=== PATIENT | male | born 1975 | race Caucasian/White ===

== ENCOUNTER 2020-08-23 08:19 | Outpatient (CLI) | payer OTHER, SELFPAY ==
--- NOTE | 2020-09-21 13:29 | WPDHOMESLEEP ---
Sleep Study - Home Unattended Date of Study: 08/23/20 Ordering Provider: Chance Arevalo MD Interpreting Physician: Seble Ken MD Home Sleep Study Type: Apnea Link Air Height: 1.85 m Weight: 108.862 kg Body Mass Index: 31.6 [place]: 9 Reason for Sleep Study Hyersomnia Sleep History Devin Benítez is a 45 year-old man with a history of waking frequently throughout the night and feeling exhausted during the daytime. He has been told by others that he stops breathing and snores very loudly at night. He wakes up throughout the night, including civil rights representative hours and has a difficult time waking in the morning. His snoring is constantly loud enough that others complain about it. He does not have heartburn, belching or coughing at night. He does not wake up feeling short of breath. He occasionally notices his heart pounding or beating irregularly at night, occasionally falls asleep during the day, occasionally involuntarily but never while driving. He rarely falls asleep during physical effort. He does not have loss of muscle tone with strong motion. He rarely has daytime difficulties due to excessive sleepiness, He works as an director clinical operations. He does not feel paralyzed on waking or falling asleep. He occasionally has vivid dreamlike scenes upon awakening or falling asleep. He has never feels afraid to go to sleep. He occasionally has nightmares. He frequently remembers his dreams. He constantly has racing thoughts. He freely feel sad depressed and anxious. He rarely has muscular tension. He occasionally notices parts of his body jerking. He rarely kicks at night. He occasionally has crawling and aching feelings in his legs and leg pain during the night. He rarely has morning jaw pain. He occasionally notices his teeth grinding during sleep. He occasionally has bothered by pain during the day, rarely is awakened by pain at night, rarely wakes up feeling stiff in the morning with sore or achy muscles. He occasionally wakes up with pain in the neck and spine. He has fatigue and depression. Normal bedtime is between 9 and 10:00 p.m. falling asleep within 30-45 minutes, typically waking 3-4 times at night staying awake for a few minutes. During that time he will go to the bathroom than toss and turn to get back to sleep. He wakes the morning at 4:00 a.m.. On the weekends he may go to bed later, between 10:00 p.m. and midnight and wake at 9:00 a.m. so he does get some recovery sleep. His sleep is often disturbed by his pets. It is harder for him to get up on the weekends after sleeping longer. He does take naps. Short naps are not refreshing. He is usually drowsy in the morning for 3 hours or longer. Habits: No mention concerning tobacco. He does drink caffeine 4-5 beverages a day. He drinks alcohol but not daily. He has lost 30 lb in the last year. [facility] Past Medical History Medical History (Updated 09/21/20 @ 13:45 by Seble Ken MD) Depression Diabetes mellitus Social History Social History (Updated 09/21/20 @ 13:42 by Seble Ken MD) Alcohol intake: current Occupation/Education: occupation Sleep Procedure This test was performed using 4 channel monitoring including respiratory effort channel, snoring channel, heart rate channel, and oxygen saturation channel. This study was scored using [facility] guidelines. Sleep Architecture Not applicable for home sleep test. Respiratory Analysis The duration of the evaluation time was 6 hours 20 minutes. The apnea-hypopnea index is 88.5. He had 397 apneas, and the majority, 94%, 373 were obstructive, 3% or 10 apneas were central, 4% or 14 apneas were mixed and he had 164 hypopneas. There was no evidence of suspected Alejandro-Yung respirations. Oximetry Data The oxygen desaturation index is 85. The lowest desaturation is 71%. The average saturation is 89% which is below normal. He had 563 desaturations and spent 42% of the study, 166 minutes, bel
[2020-09-21 13:49] VITALS: BMI 31.6
== END 2020-08-23 08:20 | disposition home or self-care (01) ==
LOC: ANHCSM 08:28
PROVIDERS: Visit Provider Family Medicine
DX: G47.9 Sleep disorder, unspecified (principal)
CPT/HCPCS: 95806

== ENCOUNTER 2020-10-26 02:22 | Outpatient (CLI) | payer OTHER, SELFPAY ==
[2020-10-26 20:00] LABS: SARS-CoV-2 RNA PCR Negative
== END 2020-10-26 02:23 | disposition home or self-care (01) ==
LOC: ANHCOVIDDT 02:22
PROVIDERS: Visit Provider Internal Medicine Critical Care Medicine
DX: R68.89 Other general symptoms and signs (principal); Z20.828 Contact with and (suspected) exposure to other viral communicable diseases
CPT/HCPCS: 87635; C9803; U0003

== ENCOUNTER 2020-10-29 06:22 | Outpatient (CLI) | payer OTHER, SELFPAY ==
--- NOTE | 2020-12-05 09:05 | WPDSLEEPSTUD ---
Sleep Study Date of Study: 10/29/20 Ordering Provider: Chance Arevalo MD Interpreting Physician: Seble Ken MD Sleep Study Type: CPAP Titration Height: 1.85 m Weight: 108.862 kg Body Mass Index: 31.6 Neck Circumference: 44.45 cm [place]: 9 Reason for Sleep Study ApneaLink home sleep test on 08/23/2020 with an AHI of 88.5, lowest saturation 71%, now presents for CPAP titration Sleep History Devin Benítez is a 45 year old man with a home sleep test on August 23, 2020 showing severe obstructive sleep apnea syndrome with an AHI of 88.5 and a minimum saturation of 71%. Sleep history includes waking frequently throughout the night and feeling exhausted during the daytime. He has been told by others that he stops breathing and snores very loudly at night. He wakes up throughout the night, including internal grinder hours and has a difficult time waking in the morning. His snoring is constantly loud enough that others complain about it. He does not have heartburn, belching or coughing at night. He does not wake up feeling short of breath. He occasionally notices his heart pounding or beating irregularly at night, occasionally falls asleep during the day, occasionally involuntarily but never while driving. He rarely falls asleep during physical effort. He does not have loss of muscle tone with strong motion. He rarely has daytime difficulties due to excessive sleepiness, He works as an mortgage operations manager. He does not feel paralyzed on waking or falling asleep. He occasionally has vivid dreamlike scenes upon awakening or falling asleep. He has never feels afraid to go to sleep. He occasionally has nightmares. He frequently remembers his dreams. He constantly has racing thoughts. He freely feel sad depressed and anxious. He rarely has muscular tension. He occasionally notices parts of his body jerking. He rarely kicks at night. He occasionally has crawling and aching feelings in his legs and leg pain during the night. He rarely has morning jaw pain. He occasionally notices his teeth grinding during sleep. He occasionally has bothered by pain during the day, rarely is awakened by pain at night, rarely wakes up feeling stiff in the morning with sore or achy muscles. He occasionally wakes up with pain in the neck and spine. He has fatigue and depression. Normal bedtime is between 9 and 10:00 p.m. falling asleep within 30-45 minutes, typically waking 3-4 times at night staying awake for a few minutes. During that time he will go to the bathroom than toss and turn to get back to sleep. He wakes the morning at 4:00 a.m.. On the weekends he may go to bed later, between 10:00 p.m. and midnight and wake at 9:00 a.m. so he does get some recovery sleep. His sleep is often disturbed by his pets. It is harder for him to get up on the weekends after sleeping longer. He does take naps. Short naps are not refreshing. He is usually drowsy in the morning for 3 hours or longer. Habits: No mention concerning tobacco. Caffeine 4-5 beverages a day. He drinks alcohol but not daily. PENDING SALE TO [facility] Past Medical History Medical History (Updated 09/21/20 @ 13:45 by Seble Ken MD) Depression Diabetes mellitus Social History Social History Alcohol intake: current Medications Medications: Metformin 1000 mg b.i.d. Sleep Procedure This test was performed using the [employer] multiple channel system including EOG, EEG, submental EMG, EKG, nasal and oral airflow using thermistors and nasal pressure sensors, chest and abdominal belts for body position data, and pulse oximetry. Video monitoring was also performed. The study was scored using [facility] guidelines. The patient was started on CPAP using medium Andres FX nasal pillows and a heated humidifier, starting at 5 cm of water pressure, increasing to maximum of 11 cm of water. The patient had supine REM at this setting. At 11 cm the patient spent 2
[2020-12-05 09:14] VITALS: BMI 31.6
== END 2020-10-29 07:53 | disposition home or self-care (01) ==
LOC: ANHCSM 11-13 06:22
PROVIDERS: Visit Provider Family Medicine
DX: G47.30 Sleep apnea, unspecified (principal); G47.33 Obstructive sleep apnea (adult) (pediatric)
CPT/HCPCS: 95811

== ENCOUNTER 2022-04-16 11:23 | Emergency (ER) | payer OTHER, SELFPAY ==
--- NOTE | ~2022-04-16 | CT_ITS ---
EXAMINATION: CT abdomen pelvis wo con DATE: 04/16/2022 12:58 INDICATION: Abdominal wall pain. TECHNIQUE: Computed tomography (CT) of the abdomen and pelvis was performed without intravenous contr ast. The dose-length product was 1267.99 mGy-cm. Automated exposure control and iterative reconstruct ion technique were employed. COMPARISON: None. FINDINGS: Lung bases are unremarkable. Heart size is normal. No significant pleural or pericardial ef fusion. Fatty infiltration of the liver. The spleen, pancreas, adrenal glands and kidneys are unremarkable. G allbladder is present. There is a fat-containing umbilical hernia. Colonic diverticulosis without ruby dence for diverticulitis. There are fat-containing bilateral inguinal hernias. The spleen is unremarkable. There are accessory splenules. The pancreas, adrenal glands and right kid trevon are unremarkable. There is a punctate 1-2 mm nonobstructing left renal stone. The appendix is unr emarkable. Moderate lumbar spondylosis. IMPRESSION: 1. Fat-containing umbilical and bilateral inguinal hernias. 2: Nonobstructing left nephrolithiasis. Reviewed, dictated and finalized at location B.
[2022-04-16 11:24] VITALS: BP 157/96; PULSE 77; RESP 18; TEMP 36.5; O2SAT 98
[2022-04-16 11:33] VITALS: BP 148/87; PULSE 75; RESP 15; O2SAT 97
--- NOTE | 2022-04-16 12:54 | ED.ABDPAIN ---
HPI - Abdominal Pain General Chief Complaint: Abdominal Pain Stated Complaint: abd pain Time Seen by Provider: 04/16/22 11:53 Source: patient and RN notes reviewed Mode of arrival: ambulatory Limitations: no limitations History of Present Illness HPI narrative: This is a 46 year old male who presents for evaluation of umbilical hernia pain. Patient states he has had an umbilical hernia for 1-2 years. He has noticed pain and redness at site of his hernia for 2 days. He has mild tenderness and itching at site. He was seen by PCP today and he was referred to ER for possible surgery for his hernia. He states he thought he was just bitten by a bug. He denies nausea, vomiting, fever, chills or diarrhea. He reports having normal bowel movement today. Related Data Allergies Allergy/AdvReac Type Severity Reaction Status Date / Time No Known Allergies Allergy Verified 04/16/22 11:32 Review of Systems Review of Systems: All systems reviewed & are unremarkable except as noted in HPI and below Constitutional: Constitutional: Denies chills, Denies fatigue and Denies fever(s) ENT: Denies sore throat Cardiovascular: Cardiovascular: Denies chest pain and Denies rapid heart rate Respiratory: Respiratory: Denies chest congestion and Denies cough Gastrointestinal: Gastrointestinal: Reports abdominal pain, Denies constipation, Denies heartburn, Denies diarrhea, Denies nausea and Denies vomiting Genitourinary: Genitourinary: Denies hematuria Musculoskeletal: Musculoskeletal: Denies back pain Integumentary/Breasts: Skin/Breast: Reports pruritus and Reports erythema PMFSH Past Medical History Medical History (Updated 04/16/22 @ 14:03 by Beverley Guerrero MD) Depression Diabetes mellitus Surgical History Surgical History (Updated 04/16/22 @ 12:58 by Beverley Guerrero MD) No pertinent past surgical history Social History Social History Alcohol intake: current Exam Const: General: healthy appearing Nutritional Appearance: well nourished Orientation/consciousness: patient oriented x3 Limitations: no limitations HENMT: Head: normal to inspection Ears: external ears normal Eyes: EOM: EOMs intact bilaterally Resp: Effort & Inspection: normal respiratory effort Auscultation: clear to auscultation bilaterally and breath sounds present Cardio: Rate: regular rate Rhythm: regular rhythm Heart sounds: no murmurs GI: GI Palp: Yes Soft to palpation, Yes Tenderness to palpation present (GI) (mild tenderness at umbilical hernia), No Guarding due to palpation present (GI), No Rigid due to palpation and No Hernia present Auscultation: normal bowel sounds Skin: Other: at umbilicus there is small cracked skin with mild blanchable erythema, at periumbilical, no induration or abscess, no drainage Neuro: General: patient oriented x3, moves all extremities and CN's II-XI intact bilaterally Psych: Mental Status: mental status grossly normal Affect: normal affect Course Reevaluation(s) Reevaluation #1: I discussed with patient that he has umbilical hernia and inguinal hernias that are fat containing. I explained that his redness is more likely due to candidal infection due to uncontrolled diabetes. He does not take any medications. I explained that he will need to follow up with PCP regarding his diabetes. I will start metformin. I explained he can follow up with general surgeon regarding his hernias. but today his problem is due to skin infection. Date: 04/16/22 Time: 13:49 Vital Signs Vital signs: Vital Signs Temperature 97.7 F 04/16/22 11:24 Pulse Rate 77 04/16/22 11:24 Respiratory Rate 18 04/16/22 11:24 Blood Pressure 157/96 H 04/16/22 11:24 Pulse Oximetry 98 04/16/22 11:24 Oxygen Delivery Room Air 04/16/22 11:24 Temperature 97.7 F 04/16/22 11:24 Pulse Rate 70 04/16/22 14:14 Respiratory Rate 16 04/16/22 14:14 Blood Pres
[2022-04-16 13:29] LABS: Basophils Absolute Auto 0.1 K/mm3 (0.0-0.1); Basophils Percent Auto 0.9 % (0.2-1.2); Eosinophils Absolute Auto 0.3 K/mm3 (0-0.3); Hematocrit 43.9 % (42.0-52.0); Hemoglobin 15.5 g/dL (14.0-18.0); Immature Granulocyte Absolute 0.03 K/mm3 (0.00-0.031); Immature Granulocyte Percent A 0.3 % (0-0.5); Lymphocytes Absolute Auto 2.48 K/mm3 (0.9-3.2); Lymphocytes Percent Auto 26.8 % (18.3-44.2); Mean Corpuscular HGB Conc 35.3 g/dl (32-36); Mean Corpuscular Hemoglobin 32.6 pg (26-34); Mean Corpuscular Volume 92.4 fl (80-100); Mean Platelet Volume 9.9 fl (7.4-10.4); Monocytes Absolute Auto 0.7 K/mm3 (0.1-0.6); Monocytes Percent Auto 7.2 % (2.6-8.5); Neutrophils Absolute Auto 5.7 K/mm3 (1.3-6.7); Neutrophils Percent Auto 61.8 % (45.5-73.1); Platelet Count Result 257 k/mm3 (150-375); Red Blood Count 4.75 M/mm3 (4.6-6.20); Red Cell Distribution Width 11.5 % (11.5-14.5); White Blood Count 9.3 K/mm3 (4.5-10.0)
[2022-04-16 13:34] LABS: Alanine Aminotransferase 69 U/L (6-50); Albumin Level 4.4 g/dL (3.5-5.1); Alkaline Phosphatase 101 U/L (38-126); Anion Gap 9 mmol/L (8-16); Aspartate Amino Transferase 53 U/L (17-59); Bilirubin,Total 0.9 mg/dL (0.2-1.3); Blood Urea Nitrogen 16 mg/dL (9-20); Calcium 9.3 mg/dL (8.4-10.2); Carbon Dioxide 24 mmol/L (22-30); Chloride 102 mmol/L (98-107); Estimated CRCL calculation 118 ml/min; Estimated Glomerular Filt Rate > 60; Glucose 241 mg/dL (65-110); Lipase 124 U/L (23-300); Potassium 4.1 mmol/L (3.4-5.0); Sodium 135 mmol/L (137-145)
[2022-04-16 13:41] LABS: Appearance Urine Clear (Clear); Bilirubin Urine Negative (Negative); Blood Urine Negative (Negative); Color Urine Yellow (Yellow); Glucose Urine UA 3+ mg/dL (Negative); Ketones Urine Trace mg/dL (Negative); Leukocyte Esterase Ur Negative LEU/UL (Negative); Nitrate Urine Negative (Negative); Protein Urine Negative (Negative)
[2022-04-16 14:06] LABS: Mucus Urine Rare /lpf; RBC Urine 0-2 /hpf (0-2); Squamous Epithelial Cell Urine Occasional /hpf (Few); WBC Urine 0-3 /hpf
[2022-04-16 14:08] LABS: Add Urine Microscopic? YES
[2022-04-16 14:14] VITALS: BP 148/74; PULSE 70; RESP 16; O2SAT 99
== END 2022-04-16 14:15 | disposition home or self-care (01) ==
PROVIDERS: Emergency Provider General Practice
DX: E11.65 Type 2 diabetes mellitus with hyperglycemia (principal); B37.2 Candidiasis of skin and nail; L03.316 Cellulitis of umbilicus; K42.9 Umbilical hernia without obstruction or gangrene; K40.20 Bilateral inguinal hernia, without obstruction or gangrene, not specified as recurrent; N20.0 Calculus of kidney
CPT/HCPCS: 36415; 74176; 80053; 81001; 83690; 85025; 99284